=== PATIENT | female | born 1990 | race Caucasian/White ===

== ENCOUNTER 2023-02-01 18:59 | Emergency (ER) | payer OTHER ==
[~2023-02-01] VITALS: Ht 162.6 cm; Wt 62.4 kg
--- NOTE | 2023-02-01 20:42 | NUR ---
[facility] FRM HOME CC OF VAGINAL BLEEDING (HEAVY) X3 DAYS, PT MISSED PERIOD. PT IN RA, NO S/SX OF ACUTE RESPI DISTRESS NOTED AT THIS TIME. A/O X 4, ABLE TO VERBALIZE NEEDS. WILL AWAIT MD ORDERS.
--- NOTE | 2023-02-01 20:53 | NUR ---
urine sample taken and sent to lab.
[2023-02-01 21:20] LABS: BILIRUBIN,URINE NEGATIVE (NEGATIVE); COLOR,URINE YELLOW (YELLOW); LEUKOCYTE ESTERASE ,URINE NEGATIVE (NEGATIVE); NITRITE, URINE NEGATIVE (NEGATIVE); PROTEIN,URINE TRACE mg/dl (NEGATIVE); UGLUCOSE NEGATIVE (NEGATIVE); UROBILINOGEN,URINE 0.2 EU/dL (0.2)
[2023-02-01 21:22] LABS: BACTERIA,URINE None seen /HPF (None Seen); RBC,URINE 51-80 /HPF (0-2); WBC,URINE 0-2 /HPF (0-3)
[2023-02-02 00:52] VITALS: BP 111/82
--- NOTE | 2023-02-02 00:52 | NUR ---
Patient discharged to home in stable condition. Written and verbal after care instructions given. Patient verbalizes understanding of instruction.
== END 2023-02-02 00:53 | disposition home or self-care (01) ==
LOC: ER 19:11
DX: O20.0 Threatened abortion (principal); Z60.2 Problems related to living alone
CPT/HCPCS: 36415; 76805-TC; 81001; 84702-TC; 84703-TC